=== PATIENT | male | born 1990 | race African-American/Black ===

== ENCOUNTER → 2020-04-21 17:26 | Outpatient (CLI) | payer OTHER, MEDICAID, SELFPAY ==
[2020-04-21 17:44] LABS: Hematocrit 41.3 % (41-53); Hemoglobin 13.8 g/dL (13.5-17.5); Mean Corpuscular HGB Conc 33.4 % (30-36); Mean Corpuscular Hemoglobin 26.7 PG (26-34); Mean Corpuscular Volume 79.8 fL (80-100); Platelet Count 196 X10^3/uL (150-400); Red Blood Cell Count 5.17 X10^6/uL (4.5-5.9); Red Cell Distribution Width 14.4 % (11.6-14.8); White Blood Cell Count 4.4 X10^3/uL (4.5-11.0)
[2020-04-21 17:45] LABS: Add Manual Diff / Slide Review YES
[2020-04-21 17:53] LABS: Alanine Aminotransferase 90 IU/L (<50); Albumin Globulin Ratio 1.5 (1.0-2.8); Alkaline Phosphatase 167 U/L (38-126); Aspartate Aminotransferase 43 IU/L (17-59); BUN Creatinine Ratio 29.2 (6-22); Bilirubin Total 0.6 mg/dL (0.2-1.3); Blood Urea Nitrogen 14 mg/dL (9-20); Calcium 9.2 mg/dL (8.4-10.2); Carbon Dioxide 29 mmol/L (22-32); Chloride 105 mmol/L (98-107); Cholesterol 88 mg/dL (140-199); Estimated Glomerular Filt Rate > 60.0 mL/min (>60); Globulin 2.7 g/dL (1.7-4.1); Glucose 105 mg/dL (70-100); HDL Cholesterol 55 mg/dL (40-60); HEMOLYSIS < 15 (0-50); LDL Cholesterol Calculated 24 mg/dL (<100); Potassium 4.4 mmol/L (3.4-5.1); Sodium 137 mmol/L (137-145); Total Protein 6.7 g/dL (6.3-8.2); Triglycerides 44 mg/dL (35-150)
[2020-04-21 18:08] LABS: Neutrophils Absolute Manual 792 /uL (3000-5900); RBC Morphology Normal Morphology; Total Cells Counted 100
[2020-04-21 18:23] LABS: TSH w/ Reflex to FT4 0.02 uIU/mL (0.47-4.68)
[2020-04-21 18:52] LABS: Free T4, Direct Thyroxine > 6.90 ng/dL (0.78-2.19)
== END ==
PROVIDERS: PCP Family Medicine; Referring Provider Family Medicine; Visit Provider Family Medicine
DX: I10 Essential (primary) hypertension (principal); R00.0 Tachycardia, unspecified
CPT/HCPCS: 36415; 80053; 80061; 84439; 84443; 85025

== ENCOUNTER → 2020-05-03 12:24 | Outpatient (CLI) | payer OTHER, MEDICAID, SELFPAY ==
[2020-05-03 13:57] LABS: Free T3, Triiodothyronine Free > 22.80 pg/mL (2.77-5.27); Free T4, Direct Thyroxine 6.75 ng/dL (0.78-2.19)
[2020-05-03 14:19] LABS: Thyroid Stimulating Hormone < 0.015 uIU/mL (0.47-4.68)
[2020-05-04 10:03] LABS: Thyroid Peroxidase Antibodies 192 IU/mL (0-34)
[2020-05-15 18:36] LABS: Thyroglobulin Level 162 ng/mL (.)
== END ==
PROVIDERS: PCP Family Medicine; Referring Provider Family Medicine; Visit Provider Family Medicine
DX: E05.90 Thyrotoxicosis, unspecified without thyrotoxic crisis or storm (principal); R94.6 Abnormal results of thyroid function studies
CPT/HCPCS: 36415; 84432; 84439; 84443; 84481; 86376

== ENCOUNTER → 2020-05-26 09:19 | Outpatient (CLI) | payer OTHER, MEDICAID, SELFPAY ==
--- NOTE | 2020-05-26 09:21 | DI.US.S_ITS ---
PROCEDURE: US THYROID INDICATIONS: NEW ONSET OF HYPERTHYROIDISM TECHNIQUE: Real-time scanning was performed of the thyroid gland, with image documentation. COMPARISON: None. FINDINGS: Right: Thyroid lobe measures 7.7 x 4.2 x 3.2 cm, and demonstrates heterogeneous echotexture. Doppler ultrasound demonstrates increased vascularity. Left: Thyroid lobe measures 6.9 x 4.1 x 3.1 cm, and demonstrates heterogeneous echotexture. Doppler ultrasound demonstrates diffusely increased vascularity. Isthmus: 7.7 mm thick. Nodule number: 1 Location: Right inferior Size: 1.9 x 1.1 x 1.3 cm. Composition: Solid Echogenicity: Hypoechoic Shape: wider than tall. Margins: Smooth Echogenic foci: None Total points: 4 ACR TI-RADS category: Moderately suspicious. IMPRESSION: 1. Enlarged thyroid gland with heterogeneous echotexture and division increased vascularity. The finding could be secondary to Graves disease. Recommend clinical correlation. 2. A 1.9 x 1.1 x 1.3 cm moderately suspicious nodule. Fine-needle aspiration biopsy is suggested. ACR TI-RADS definitions and recommendations: TI-RADS 1 (benign): 0 points. FNA not needed. TI-RADS 2 (not suspicious): 2 points. FNA not needed. TI-RADS 3 (mildly suspicious): 3 points. * FNA if 2.5 cm or larger, follow up if 1.5 cm or larger (at 1, 3, and 5 years). TI-RADS 4 (moderately suspicious): 4-6 points. * FNA if 1.5 cm or larger, follow up if 1 cm or larger (at 1, 2, 3, and 5 years). TI-RADS 5 (highly suspicious): 7 points or more. * FNA if 1 cm or larger, follow up if 0.5 cm or larger (every year for 5 years). Dictated by: June Byrne M.D. on 05/26/2020 at 10:27 Approved by: June Byrne M.D. on 05/26/2020 at 10:34
[2020-05-26 12:14] LABS: Free T4, Direct Thyroxine 5.32 ng/dL (0.78-2.19)
[2020-05-26 12:47] LABS: Thyroid Stimulating Hormone < 0.015 uIU/mL (0.47-4.68)
[2020-05-27 16:08] LABS: Anti Thyroglobulin Antibody <1.0 IU/mL (0.0-0.9)
[2020-05-31 12:54] LABS: Thyroglobulin Level <1.0
== END ==
PROVIDERS: PCP Family Medicine; Referring Provider Family Medicine; Visit Provider Family Medicine
DX: E05.10 Thyrotoxicosis with toxic single thyroid nodule without thyrotoxic crisis or storm (principal); R94.6 Abnormal results of thyroid function studies; R00.0 Tachycardia, unspecified
CPT/HCPCS: 36415; 76536; 84432; 84439; 84443; 84481; 86800

== ENCOUNTER → 2020-06-16 09:40 | Outpatient (CLI) | payer OTHER, MEDICAID, SELFPAY ==
--- NOTE | 2020-06-16 09:43 | DI.US.S_ITS ---
PROCEDURE: US THYROID INDICATIONS: NODULE; HISTORY GRAVES DISEASE TECHNIQUE: Real-time scanning was performed of the thyroid gland in the area of anticipated biopsy right lower posterior thyroid lobe, with image documentation. COMPARISON: [facility], , US THYROID, 05/26/2020, 9:28. FINDINGS: As was previously identified the thyroid lobe is enlarged and heterogeneous, associated with Graves disease according to the patient. At the posterior inferior thyroid border there is a hypoechoic nodule averaging slightly over 1 cm in diameter. This nodule is positioned potentially external to the thyroid margin by sonographic appearance today. Extension of the thyroid tissue to encompass this nodule is not seen. The position of the nodule open (far inferior close) and its depth precluded access for safe fine needle aspiration. Specifically shadowing from adjacent osseous margins precluded clear visualization of a course for biopsy at this depth and position that would avoid unintended intersection with the nonvisualized carotid artery and jugular vein in that area. IMPRESSION: 1. A thyroid nodule biopsy was planned for today, inferior posterior right thyroid lobe area. This nodule could not be safely accessed for ultrasound-guided fine needle aspiration due to its deep posterior position which distal allowed visualization of the access pathway for needle aspiration. Specifically the right carotid artery and jugular vein could not be visualized through the right neck for safe access. 2. Of significant note the nodule of concern may in fact be external to the posterior border of the low thyroid margin on the right. The appearance is consistent with a potential parathyroid adenoma as the underlying cause. Please correlate clinically for assessing this issue given the fact that enveloping thyroid tissue around that nodule cannot be seen. Dictated by: Lee Carcamo M.D. on 06/16/2020 at 10:46 Approved by: Lee Carcamo M.D. on 06/16/2020 at 11:14
== END ==
PROVIDERS: PCP Family Medicine; Referring Provider Family Medicine; Visit Provider Family Medicine
DX: E04.1 Nontoxic single thyroid nodule (principal)
CPT/HCPCS: 76536

== ENCOUNTER → 2020-06-23 08:05 | Outpatient (CLI) | payer OTHER, MEDICAID, SELFPAY ==
--- NOTE | 2020-06-23 08:06 | DI.ECHO.S_ITS ---
[place] [facility] +---------+ : : [address] : : : : [id number] : : : : Phone: [phone] Echocardiogram Report + + :Name: STEPHEN FOSTER MEHTA Study Date: 06/23/2020 Height: 72 in : [id number] Weight: 250 lb : : Gender: Male BSA: 2.3 m2 : :: 1990 Age: 30 yrs BP: 160/86 mmHg: :Reason For Study: TACHYCARDIA : : Performed By: Ana Nathan : :Referring: TAMIKO LOVELACE : + + Interpretation Summary Left ventricular systolic function appears normal with an estimated ejection fraction of 55 to 60% without any focal wall motion abnormality. Left ventricular size and wall thickness appear normal. Diastolic function is indeterminate. The right ventricle appears normal in size and systolic function. There is mild pulmonary hypertension with the right ventricular systolic pressure estimated at 32-37 mmHg based on a CVP of 3-8 mmHg. There is moderate left atrial enlargement and mild right atrial enlargement. There is no significant valvular abnormality. The ascending aorta and aortic arch are borderline enlarged, perhaps due to the patient's large BSA. The patient was in sinus rhythm at 78-100 bpm during the exam. Procedure: A two-dimensional transthoracic echocardiogram with color flow and Doppler was performed. The study quality was technically adequate. There is no prior echocardiogram noted for this patient. The patient was in sinus rhythm with heart rates between 78-100 bpm during the exam. Left Ventricle: The left ventricle appears normal in size, wall thickness, and systolic function without any focal wall motion abnormalities. There is no ventricular septal defect visualized. The ejection fraction is estimated to be 55-60%. Diastolic function could not be accurately assessed due to contradictory data. Right Ventricle: The right ventricle is normal in size and function. Atria: The left atrium is moderately dilated. The right atrium is mildly dilated. There is no Doppler evidence for an interatrial shunt. Mitral Valve: The mitral valve is normal in structure and function. There is trace mitral regurgitation. Aortic Valve: The aortic valve is trileaflet. The aortic valve opens well. No aortic regurgitation is present. Tricuspid Valve: The tricuspid valve is normal in structure and function. There is a trace or physiologic amount of tricuspid regurgitation. The right ventricular systolic pressure is estimated to be at least 32 mmHg based on an estimated right atrial pressure of 3 mm Hg. Pulmonic Valve: The pulmonic valve is not well visualized. There is a trace or physiologic amount of pulmonic regurgitation. Great Vessels: The aortic root is normal size. The ascending aorta is at the upper limits of normal in size. The aortic arch is at the upper limits of normal in size. The IVC is of normal diameter and collapses greater than 50% with a sniff. This suggests a low right atrial pressure of 3 mm Hg. Pericardium/ Pleura There is no pericardial effusion. MMode/2D Measurements & Calculations LVIDd: 5.5 cm LVOT diam: 2.4 cm LVIDs: 4.0 cm Ao root diam: 3.5 cm FS: 27.5 % Aortic Jxn: 3.1 cm EPSS: 0.88 cm asc Aorta Diam: 3.4 cm IVSd: 0.88 cm Ao Arch Diam (Prox Trans): 3.1 cm LVPWd: 1.0 cm LV de la torre. diameter/BSA (cm/m^2): 2.3 LV sys. diameter/BSA (cm/m^2): 1.7 LA A2 area: 28.3 cm2 RA long axis: 5.8 cm LA A4 area: 30.8 cm2 RA area: 23.6 cm2 LA length (vol): 6.6 cm RA vol: 80.6 ml LA vol: 111.6 ml RA : 34.4 ml/m2 LA vol index: 47.6 ml/m2 IVC diam: 2.1 cm RVD1 (basal): 3.5 cm RVD2 (mid): 3.0 cm TAPSE: 3.0 cm Doppler Measurements & Calculations Ao V2 max: 157.7 cm/sec LVOT Max Tin: 138.7 cm/sec Ao V2 mean: 98.8 cm/sec LV V1 max P.7 mmHg Ao max P.9 mmHg LV V1 VTI: 22.8 cm Ao mean P.5 mmHg MONA(I,D): 4.0 cm2 Ao V2 VTI: 25.8 cm MONA(V,D): 3.9 cm2 sev ratio: 0.89 MONA indexed to BSA (cm^2/m^2): 1.7 MV E max tin: 89.8 cm/sec TR max tin: 267.2 cm/sec MV A max tin: 53.6 cm/sec TR max P.6 mmHg MV E/A: 1.7 PA V2 max: 78.9 cm/sec Med Peak E' Tin: 9.7 cm/sec PA V2 mean: 56.9 cm/sec E/E' med: 9.3 PA mean P.4 mmHg Lat Peak E' Tin: 10.2 cm/sec PA Accel Time: 0.08 sec E/E' lat: 8.8 E/e' average: 9.0 MV dec time: 0.13 sec MV P1/2t: 38.5 msec MV P1/2t max tin: 90.1 cm/sec SV(LVOT): 102.6 ml MVA(P1/2t): 5.7 cm2 Reading Physician:09:56 AM
== END ==
PROVIDERS: PCP Family Medicine; Referring Provider Family Medicine; Visit Provider Family Medicine
DX: R00.0 Tachycardia, unspecified (principal); E05.00 Thyrotoxicosis with diffuse goiter without thyrotoxic crisis or storm
CPT/HCPCS: 93306

== ENCOUNTER → 2020-06-30 11:44 | Outpatient (CLI) | payer OTHER, MEDICAID, SELFPAY ==
[2020-06-30 13:30] LABS: Alanine Aminotransferase 38 IU/L (<50); Albumin 4.1 g/dL (3.5-5.0); Albumin Globulin Ratio 1.5 (1.0-2.8); Alkaline Phosphatase 213 U/L (38-126); Aspartate Aminotransferase 30 IU/L (17-59); BUN Creatinine Ratio 23.1 (6-22); Bilirubin Total 0.7 mg/dL (0.2-1.3); Blood Urea Nitrogen 15 mg/dL (9-20); Calcium 9.1 mg/dL (8.4-10.2); Carbon Dioxide 28 mmol/L (22-32); Chloride 106 mmol/L (98-107); Estimated Glomerular Filt Rate > 60.0 mL/min (>60); Globulin 2.8 g/dL (1.7-4.1); Glucose 98 mg/dL (70-100); HEMOLYSIS < 15 (0-50); Potassium 4.6 mmol/L (3.4-5.1); Sodium 136 mmol/L (137-145); Total Protein 6.9 g/dL (6.3-8.2)
[2020-06-30 13:39] LABS: Free T3, Triiodothyronine Free 9.48 pg/mL (2.77-5.27); Free T4, Direct Thyroxine 3.67 ng/dL (0.78-2.19)
[2020-06-30 13:57] LABS: Thyroid Stimulating Hormone < 0.015 uIU/mL (0.47-4.68)
[2020-07-01 07:09] LABS: Parathyroid Hormone Int 108 pg/mL (15-65)
== END ==
PROVIDERS: PCP Family Medicine; Referring Provider Family Medicine; Visit Provider Family Medicine
DX: E04.1 Nontoxic single thyroid nodule (principal); E05.00 Thyrotoxicosis with diffuse goiter without thyrotoxic crisis or storm
CPT/HCPCS: 36415; 80053; 83970; 84439; 84443; 84481

== ENCOUNTER → 2020-10-18 08:52 | Outpatient (CLI) | payer OTHER, MEDICAID, SELFPAY ==
[2020-10-18 09:59] LABS: Free T3, Triiodothyronine Free 3.76 pg/mL (2.77-5.27); Free T4, Direct Thyroxine 0.95 ng/dL (0.78-2.19)
[2020-10-18 10:13] LABS: Thyroid Stimulating Hormone < 0.015 uIU/mL (0.47-4.68)
[2020-10-19 12:09] LABS: Calcium 8.9 mg/dL (8.7-10.2); Parathyroid Hormone, Intact 98 pg/mL (15-65); Triiodothyronine T3 Total 92 ng/dL (71-180)
== END ==
PROVIDERS: PCP Family Medicine; Referring Provider Internal Medicine Endocrinology, Diabetes & Metabolism; Visit Provider Family Medicine
DX: E05.90 Thyrotoxicosis, unspecified without thyrotoxic crisis or storm (principal); E05.00 Thyrotoxicosis with diffuse goiter without thyrotoxic crisis or storm; E21.3 Hyperparathyroidism, unspecified
CPT/HCPCS: 36415; 82310; 83970; 84439; 84443; 84480; 84481

== ENCOUNTER → 2020-12-13 07:58 | Outpatient (CLI) | payer OTHER, MEDICAID, SELFPAY ==
[2020-12-13 09:16] LABS: Vitamin D 25 Hydroxy (D3) 30.4 ng/mL (30.0-100.0)
[2020-12-13 09:30] LABS: TSH w/ Reflex to FT4 < 0.02 uIU/mL (0.47-4.68)
[2020-12-13 10:09] LABS: Free T4, Direct Thyroxine 3.93 ng/dL (0.78-2.19)
[2020-12-14 15:22] LABS: Parathyroid Hormone, Intact 70 pg/mL (15-65)
== END ==
PROVIDERS: PCP Family Medicine; Referring Provider Internal Medicine Endocrinology, Diabetes & Metabolism; Visit Provider Internal Medicine Endocrinology, Diabetes & Metabolism
DX: E05.90 Thyrotoxicosis, unspecified without thyrotoxic crisis or storm (principal); E21.3 Hyperparathyroidism, unspecified
CPT/HCPCS: 36415; 82306; 82310; 83970; 84439; 84443

== ENCOUNTER 2022-06-03 16:48 | Emergency (ER) | payer OTHER, MEDICAID, SELFPAY ==
[2022-06-03] VITALS (10 sets, daily range): BP systolic 129–151; BP diastolic 72–89; PULSE 74–89; RESP 18–27; TEMP 37.1; O2SAT 97–99; BMI 40.4
--- NOTE | 2022-06-03 16:57 | DI.RAD.S_ITS ---
PROCEDURE: XR CHEST 1V INDICATIONS: chest pain TECHNIQUE: One view of the chest was acquired. COMPARISON: None. FINDINGS: Surgical changes and devices: None. Lungs and pleura: Lungs are clear. No pleural effusions or pneumothorax. Mediastinum: Mediastinal contours appear normal. Heart size is within normal limits but accentuated by low lung volumes Bones and chest wall: No suspicious bony lesions. Overlying soft tissues appear unremarkable. IMPRESSION: Low lung volumes. Otherwise unremarkable. Approved by: Feroz Solomon M.D. on 06/03/2022 at 17:04
[2022-06-03 17:10] LABS: Add Manual Diff / Slide Review NO; Basophils Absolute Auto 0 /uL (0-100); Basophils Percent Auto 0.6 % (0-2); Eosinophils Absolute Auto 100 /uL (0-450); Eosinophils Percent Auto 2.5 % (2-4); Hematocrit 43.9 % (41-53); Hemoglobin 14.8 g/dL (13.5-17.5); Lymphocytes Absolute Auto 1600 /uL (1100-4500); Mean Corpuscular HGB Conc 33.6 % (30-36); Mean Corpuscular Hemoglobin 28.2 PG (26-34); Mean Corpuscular Volume 83.9 fL (80-100); Monocytes Absolute Auto 500 /uL (0-900); Monocytes Percent Auto 13.6 % (3-14); Neutrophils Absolute Auto 1300 /uL (1500-7000); Neutrophils Percent Auto 37.3 % (50-75); Platelet Count 212 X10^3/uL (150-400); Red Blood Cell Count 5.23 X10^6/uL (4.5-5.9); Red Cell Distribution Width 13.8 % (11.6-14.8); White Blood Cell Count 3.5 X10^3/uL (4.5-11.0)
[2022-06-03 17:16] LABS: Alanine Aminotransferase 29 IU/L (<50); Albumin Globulin Ratio 1.4 (1.0-2.8); Alkaline Phosphatase 153 U/L (38-126); Aspartate Aminotransferase 30 IU/L (17-59); BUN Creatinine Ratio 14.3 (6-22); Bilirubin Total 0.4 mg/dL (0.2-1.3); Blood Urea Nitrogen 12 mg/dL (9-20); Calcium 8.4 mg/dL (8.4-10.2); Carbon Dioxide 25 mmol/L (22-32); Chloride 106 mmol/L (98-107); Creatine Kinase 261 U/L (55-170); Estimated Glomerular Filt Rate > 60 mL/min (>60); Globulin 2.9 g/dL (1.7-4.1); Glucose 128 mg/dL (70-100); Lipase 87 U/L (23-300); Magnesium 1.9 mg/dL (1.6-2.3); Potassium 3.7 mmol/L (3.4-5.1); Sodium 137 mmol/L (137-145); Total Protein 6.9 g/dL (6.3-8.2)
[2022-06-03 17:28] LABS: Troponin I < 0.012 ng/mL (0.01-0.034)
[2022-06-03 17:32] LABS: CKMB % Relative Index 0.5 % (1.5-5.0); Creatine Kinase MB 1.27 ng/mL (<2.37); HEMOLYSIS 16 (0-50)
[2022-06-03 17:47] LABS: TSH w/ Reflex to FT4 < 0.02 uIU/mL (0.47-4.68)
--- NOTE | 2022-06-03 18:46 | ED_ITS ---
HPI - Arrhythmia/Palpitations General Chief Complaint: Arrhythmia/Palpitations Stated Complaint: Racing heart, new med, hx Graves disease Time Seen by Provider: 06/03/22 17:57 Source: patient and EMS Mode of arrival: Ambulatory History of Present Illness HPI narrative: Patient is a 32-year-old male. History of hyperthyroidism/Graves disease. Is on medication to include methimazole and metoprolol. He recently filled his metoprolol he states that it was a new prescription and he is felt that it has not worked as well as the old prescription. Earlier today he had an episode where he became dizzy and also felt like his heart was racing fast. He took a dose of the old metoprolol and his symptoms seem to improve afterwards. He cur rently is asymptomatic. Related Data Previous Rx's Medication Instructions Recorded fluticasone propionate 50 2 spray intranasal DAILY #18.2 mL 03/30/20 mcg/actuation nasal spray,suspension (Flonase Allergy Relief) loratadine 10 mg tablet 10 mg PO DAILY #30 tabs 03/30/20 amlodipine 2.5 mg tablet 2.5 mg PO DAILY #30 tabs 04/21/20 lorazepam 0.5 mg tablet 0.5 mg PO BID PRN anxiety #10 tabs 05/03/20 metoprolol tartrate 50 mg tablet 50 mg PO BID #180 tabs 06/05/20 metoprolol succinate 25 mg 25 mg PO BID #180 tabs 08/04/20 tablet,extended release 24 hr methimazole 5 mg tablet 5 mg PO BID #180 tabs 08/22/20 Allergies Allergy/AdvReac Type Severity Reaction Status Date / Time No Known Drug Allergies Allergy Verified 08/04/20 11:20 Review of Systems Cardiovascular Cardiovascular: Reports system reviewed and no additional complaints, except as documented Respiratory Respiratory: Reports system reviewed and no additional complaints, except as documented Gastrointestinal Gastrointestinal: Reports system reviewed and no additional complaints, except as documented Integumentary/Breasts Skin/Breast: Reports system reviewed and no additional complaints, except as documented Hematologic/Lymphatic On Anticoagulants: No Patient History Medical History Anxiety with flying Cough Graves disease Hyperparathyroidism Hypertension Hyperthyroidism determined by thyroid function test Sinus tachycardia Thyroid nodule Family History (Updated 04/24/20 @ 18:54 by Holly Santos) Father Hyperlipidemia Diabetes mellitus Sister Diabetes mellitus Grandfather Diabetes mellitus Hypertension Grandfather Hypertension Social History Smoking Status: Never smoker alcohol intake: never substance use type: does not use Smoking Status: Never smoker Exam Initial Vital Signs Initial Vital Signs: Vital Signs Temperature 98.8 F 06/03/22 16:48 Pulse Rate 80 06/03/22 16:48 Respiratory Rate 18 06/03/22 16:48 Blood Pressure 129/80 06/03/22 16:48 Pulse Oximetry 97 06/03/22 16:48 Oxygen Delivery Method 06/03/22 16:48 Const General: cooperative, comfortable and No ill appearing HENMT Head: normal to inspection and normocephalic Resp Effort & Inspection: normal respiratory effort Auscultation: clear to auscultation bilaterally Cardio Rate: regular rate Rhythm: regular rhythm GI Inspection: normal to inspection Skin General: no rashes or lesions noted Neuro General: patient alert, patient awake and moves all extremities Extrem General: normal to inspection and capillary refill normal Psych Appearance: grossly normal Course Orders Ordered: ED Orders 06/03/22 16:56 Complete Blood Count AUTO DIFF Stat Comprehensive Metabolic Panel Stat Free T4, Direct Thyroxine Stat Lipase Stat Magnesium Stat TSH w/ Reflex to FT4 Stat Troponin & CK Cardiac Panel Stat 06/03/22 16:57 XR chest 1V Stat EKG-12 Lead Stat Vital Signs Vital signs: Vital Signs - 8 hr 06/03/22 17:00 06/03/22 17:03 06/03/22 17:03 Pulse Rate 80 85 Respiratory Rate 24 22 Blood Pressure 129/80 Pulse Oximetry 98 98 06/03/22 17:22 06/03/22 17:22 06/03/22 17:30 Pulse Rate 82 Respiratory Rate 27 H Blood Pressure 145/72 H 150/84 H Pulse Oximetry 97 06/03/22 17:30 06/03/22 18:00 06/03/22 18:01 Pulse Rate 81 81 Respiratory Rate 24 27 H Blood Pressure 151/89 H Pulse Oximetry 98 98 06/03/22 18:01 06/03/22 18:30 06/03/22 18:31 Pulse Rate 80 76 Respiratory Rate 25 H 27 H Blood Pressure 133/72 Pulse Oximetry 99 98 06/03/22 18:31 Pulse Rate 74 Respiratory Rate 24 Blood Pressure Pulse Oximetry 98 MDM - Arrhythmia/Palpitations Lab Data Attestation: I reviewed the patient's lab results. Result diagrams: 06/03/22 16:56 06/03/22 16:56 Labs: Lab Results 06/03/22 06/03/22 06/03/22 Range/Units 16:56 16:56 16:56 WBC 3.5 L (4.5-11.0) X10^3/uL RBC 5.23 (4.5-5.9) X10^6/uL Hgb 14.8 (13.5-17.5) g/dL Hct 43.9 (41-53) % MCV 83.9 (80-100) fL MCH 28.2 (26-34) PG MCHC 33.6 (30-36) % RDW 13.8 (11.6-14.8) % Plt Count 212 (150-400) X10^3/uL Neut % (Auto) 37.3 L (50-75) % Lymph % (Auto) 46.0 H (25-40) % [place] % (Auto) 13.6 (3-14) % Eos % (Auto) 2.5 (2-4) % Baso % (Auto) 0.6 (0-2) % Neut # (Auto) 1300 L (1139-5740) /uL Lymph # (Auto) 1600 (5369-4007) /uL [place] # (Auto) 500 (0-900) /uL Eos # (Auto) 100 (0-450) /uL Baso # (Auto) 0 (0-100) /uL Sodium 137 (137-145) mmol/L Potassium 3.7 (3.4-5.1) mmol/L Chloride 106 (98-107) mmol/L Carbon Dioxide 25 (22-32) mmol/L BUN 12 (9-20) mg/dL Creatinine 0.84 (0.66-1.25) mg/dL Estimated GFR > 60 (>60) mL/min BUN/Creatinine Ratio 14.3 (6-22) Glucose 128 H (70-100) mg/dL Calcium 8.4 (8.4-10.2) mg/dL Magnesium 1.9 (1.6-2.3) mg/dL Total Bilirubin 0.4 (0.2-1.3) mg/dL AST 30 (17-59) IU/L ALT 29 (<50) IU/L Alkaline Phosphatase 153 H (38-126) U/L Total Creatine Kinase 261 H (55-170) U/L CK-MB (CK-2) 1.27 (<2.37) ng/mL CK-MB (CK-2) Rel Index 0.5 L (1.5-5.0) % Troponin I < 0.012 (0.01-0.034) ng/mL Total Protein 6.9 (6.3-8.2) g/dL Albumin 4.0 (3.5-5.0) g/dL Globulin 2.9 (1.7-4.1) g/dL Albumin/Globulin Ratio 1.4 (1.0-2.8) Lipase 87 (23-300) U/L TSH < 0.02 L (0.47-4.68) uIU/mL Free T4 2.30 H (0.78-2.19) ng/dL Imaging Data Chest x-ray: Radiologist's Impresson: Close Chest X-Ray (Signed) Feroz Solomon - 06/03/22 Echocardiogram Ultrasound (Signed) Wilver Ramirez - 06/23/20 Thyroid Ultrasound (Signed) Lee Carcamo - 06/16/20 Thyroid Ultrasound (Signed) Cheyenne Byrne - 05/26/20 EKG Rpt. 04/21/20 Launch?[address] [address] XRay Report Signed Patient: Jay Hemphill Jr MR#: [id number] : 1990 Acct:[id number] Age/Sex: 32 / M Date of Service: 06/03/22 Loc: ED Accession Number: [id number] ?? Procedure: XR chest 1V Ordering Provider: Nerissa Stokes D.O. PROCEDURE:? XR CHEST 1V ? INDICATIONS:? chest pain ? TECHNIQUE:? One view of the chest was acquired.? ? COMPARISON:? None. ? FINDINGS:? ? Surgical changes and devices:? None.? ? Lungs and pleura:? Lungs are clear.? No pleural effusions or pneumothorax.? ? Mediastinum:? Mediastinal contours appear normal.? Heart size is within normal limits but accentuated by low lung volumes ? Bones and chest wall:? No suspicious bony lesions.? Overlying soft tissues appear unremarkable.? ? IMPRESSION:? ? Low lung volumes.? Otherwise unremarkable. ? ? ? Approved by: Feroz Solomon M.D. on 06/03/2022 at 17:04? ECG Data Attestation: I personally reviewed and interpreted this ECG as follows: Interpretation: Sinus rhythm Ventricular rate 82 Normal axis Normal QRS Normal QTC No ST T wave changes MDM Narrative Medical decision making narrative: Patient is currently asymptomatic. EKG is unremarkable. Not tachycardic. Does have an elevated free T4. Did discuss this with him and he does have an funeral service apprentice that he follows up with. He was given a copy of his labs to take to his funeral service apprentice. We discussed his metoprolol. It appears that the current dose of metoprolol is the same dose and medication however does appear to be a different manufacture. He seems to think that the prior prescription for metoprolol works better. He has some of these medications left over. He is going to switch and start using the prior prescription and contact his doctor for follow-up. He was given return precautions. He expressed understanding and agreement. Discharge Plan Departure Patient Disposition: Home Clinical Impression: Palpitations, Hyperthyroidism Instructions: Hyperthyroidism Activity Restrictions/Additional Instructions: I do recommend that you continue to take all of your medications as directed and contact your funeral service apprentice for follow-up. Return to the emergency department for any new or worsening symptoms. Prescriptions: No Action fluticasone propionate [Flonase Allergy Relief] 50 mcg/actuation spray,suspension 2 spray NASAL DAILY Qty: 18.2 0RF Rx Instructions: administer into each nostril loratadine 10 mg tablet 10 mg PO DAILY Qty: 30 0RF metoprolol tartrate 50 mg tablet 50 mg PO BID Qty: 180 1RF methimazole 5 mg tablet 5 mg PO BID Qty: 180 2RF amlodipine 2.5 mg tablet 2.5 mg PO DAILY Qty: 30 2RF lorazepam 0.5 mg tablet 0.5 mg PO BID PRN (Reason: anxiety) Qty: 10 1RF Rx Instructions: Take 30 minutes prior to flight metoprolol succinate 25 mg tablet extended release 24 hr 25 mg PO BID Qty: 180 3RF Referrals: Ricardo Galan, DO [Primary Care Provider] - Visit Report Forms: Patient Portal/API
== END 2022-06-03 19:10 | disposition home or self-care (01) ==
PROVIDERS: Emergency Medicine; Emergency Provider Emergency Medicine; PCP Family Medicine
DX: R00.2 Palpitations (principal); R07.9 Chest pain, unspecified; E05.90 Thyrotoxicosis, unspecified without thyrotoxic crisis or storm; Z79.899 Other long term (current) drug therapy
CPT/HCPCS: 36415; 71045; 80053; 82550; 82553; 83690; 83735; 84439; 84443; 84484; 85025; 93005; 93010; 99284